=== PATIENT | female | born 1985 | race African-American/Black ===

== ENCOUNTER 2017-03-14 09:23 | Emergency (ER) | payer OTHER ==
[~2017-03-14] VITALS: Ht 160 cm; Wt 70.8 kg
[~2017-03-14 09:23] MED LIST: AMOXICILLIN 25250 M1 PO; BACTRIM DS TAB1 EACH PO; FLONASE 0.05%50 MCG NS; KEFLEX500 MG PO; NAPROSYN500 MG PO; NOHOMEMEDICATIONS; NORCO 5-325 TA1 EACH PO; PENICILLIN VK500 M1 PO; PROAIR HFA8.5 GM INH; PROMETHAZINE-C120 ML PO; TRAMADOL 50 MG50 MG PO; TUSSIONEX PENN473 ML PO; ZPAK PO
[2017-03-14 09:39] LABS: URINE BILIRUBIN NEGATIVE (Negative); URINE BLOOD 3+ (Negative); URINE COLOR YELLOW; URINE GLUCOSE-RANDOM* NEGATIVE (Negative); URINE KETONES NEGATIVE (Negative); URINE NITRITE NEGATIVE (Negative); URINE PROTEIN (DIPSTICK) NEGATIVE (Negative); URINE UROBILINOGEN 0.2 E.U./dl (0.2-1.0)
[2017-03-14 09:47] LABS: CASTS None Seen /LPF (None Seen); SQUAMOUS >10 Many /LPF (0-3)
[2017-03-14 09:48] LABS: BACTERIA 1-9 Few /HPF (None Seen); CRYSTALS None Seen /LPF (None Seen); URINE RBC 3-10 Few /HPF (0-2); URINE WBC 0-5 Rare /HPF (0-5)
[2017-03-14 10:39] LABS: ABSOLUTE NEUTROPHILS 2.9 thou/uL (1.4-8.2); BASOPHILS 0.7 % (0.0-2.0); EOSINOPHILS 2.3 % (0.0-3.0); HEMATOCRIT 37.6 % (37.0-47.0); HEMOGLOBIN 12.7 gm/dL (12.0-15.0); LYMPHOCYTES 25.3 % (24.0-44.0); MANUAL DIFF NO; MCH 32.2 pg (26.0-34.0); MCHC 33.8 g/dL (28.0-37.0); MCV 95.1 fL (80.0-100.0); MONOCYTES 11.5 % (1.0-8.0); PLATELET COUNT 239 thou/uL (150-400); POLYS 60.2 % (36.0-66.0); RBC 3.95 mil/uL (4.20-5.00); RDW 12.9 % (10.5-14.5); WBC 4.8 thou/uL (4.0-11.0)
[2017-03-14 10:54] LABS: CALCIUM 8.9 mg/dL (8.5-10.1); CREATININE 0.8 mg/dL (0.6-1.0); POTASSIUM 3.6 mmol/L (3.5-5.1)
[2017-03-14 10:59] LABS: ALBUMIN 3.9 g/dL (3.4-5.0); TOTAL BILIRUBIN 0.9 mg/dL (<0.1-1.0); TOTAL PROTEIN 7.2 g/dL (6.4-8.2)
[2017-03-14] MEDS ORDERED: PREDNISONE 10 M10 MG PO (12:26)
[2017-03-14 12:45] VITALS: BP 105/62
== END 2017-03-14 12:46 | disposition home or self-care (01) ==
LOC: ER 09:23
PROVIDERS: Physician Assistant
DX: K59.00 Constipation, unspecified (principal); R09.81 Nasal congestion; F17.210 Nicotine dependence, cigarettes, uncomplicated

== ENCOUNTER 2018-08-16 08:57 | Emergency (ER) | payer OTHER ==
[~2018-08-16] VITALS: Ht 160 cm; Wt 77.1 kg
--- NOTE | ~2018-08-16 | EKG ---
[place] [address] [facility] [place] [address] ELECTROCARDIOGRAM REPORT Name: TESS SIMS ELLA [id number] Admission: 08/16/18 Attend Phys: Discharge: 08/16/18 Date of : 81 Report #: [id number] THIS REPORT FOR: //name// [facility] ED Test Date: 2018-08-16 Test Time: 10:01:33 Pat Name: TESS SIMS Department: Room: Gender: F Host/Hostess Head: : 1985 Requested By: Humera Weinberg Order Number: [id number] MD: Placido Hamlin Measurements Intervals [place] Rate: 89 P: 44 [place]: 133 QRS: 7 QRSD: 87 T: 24 QT: 358 QTc: 436 Interpretive Statements Sinus rhythm No significant abnormality No previous ECG available for comparison Electronically Signed On 08-17-2018 8:43:40 CDT by Placido Hamlin [email or web address] <ELECTRONICALLY SIGNED> By: Placido Hamlin MD, [facility] 08/17/18 [id number] Placido aHmlin MD, FACC /EPI
[~2018-08-16 08:57] MED LIST changes: +PREDNISONE 10 M10 MG PO
[2018-08-16] MEDS ORDERED: DEXILANT30 MG PO (09:10)
[2018-08-16 09:38] LABS: URINE BILIRUBIN NEGATIVE (Negative); URINE BLOOD TRACE (Negative); URINE CLARITY CLEAR; URINE COLOR YELLOW; URINE GLUCOSE-RANDOM* NEGATIVE (Negative); URINE KETONES NEGATIVE (Negative); URINE LEUKOCYTES NEGATIVE (Negative); URINE NITRITE NEGATIVE (Negative); URINE PROTEIN (DIPSTICK) NEGATIVE (Negative); URINE SPECIFIC GRAVITY <= 1.005 (1.005-1.035); URINE UROBILINOGEN 0.2 E.U./dl (0.2-1.0)
[2018-08-16 09:50] LABS: BASOPHILS 0.7 % (0.0-2.0); EOSINOPHILS 2.7 % (0.0-3.0); HEMATOCRIT 34.9 % (37.0-47.0); HEMOGLOBIN 11.8 gm/dL (12.0-15.0); LYMPHOCYTES 12.8 % (24.0-44.0); MCH 31.9 pg (26.0-34.0); MCHC 33.8 g/dL (28.0-37.0); MCV 94.3 fL (80.0-100.0); MONOCYTES 10.8 % (1.0-8.0); PLATELET COUNT 360 thou/uL (150-400); RDW 12.8 % (10.5-14.5); WBC 6.8 thou/uL (4.0-11.0)
[2018-08-16 09:59] LABS: CALCIUM 9.6 mg/dL (8.5-10.1); CREATININE 0.8 mg/dL (0.6-1.0); POTASSIUM 3.9 mmol/L (3.5-5.1)
[2018-08-16 10:04] LABS: ALBUMIN 3.4 g/dL (3.4-5.0); TOTAL BILIRUBIN 0.5 mg/dL (<0.1-1.0); TOTAL PROTEIN 7.8 g/dL (6.4-8.2)
[2018-08-16] MEDS ORDERED: FLONASE 0.05%50 MCG NASAL (10:25)
[2018-08-16] MEDS ORDERED: TESSALON PERLE100 MG PO (10:25)
== END 2018-08-16 10:52 | disposition home or self-care (01) ==
LOC: ER 08:57
PROVIDERS: Physician Assistant
DX: J06.9 Acute upper respiratory infection, unspecified (principal); J45.909 Unspecified asthma, uncomplicated; F41.9 Anxiety disorder, unspecified; F17.210 Nicotine dependence, cigarettes, uncomplicated

== ENCOUNTER 2021-10-30 10:50 | Emergency (ER) | payer OTHER ==
[~2021-10-30] VITALS: Ht 160 cm; Wt 72.6 kg
[~2021-10-30 10:50] MED LIST changes: +DEXILANT30 MG PO; +FLONASE 0.05%50 MCG NASAL; +TESSALON PERLE100 MG PO
[2021-10-30] MEDS ORDERED: LINZESS72 MCG PO (10:55)
[2021-10-30 11:12] LABS: ABSOLUTE NEUTROPHILS 1.6 thou/uL (1.4-8.2); HEMOGLOBIN 12.4 gm/dL (12.0-15.0); LYMPHOCYTES 31.2 % (24.0-44.0); MCH 31.6 pg (26.0-34.0); MCHC 32.5 g/dL (28.0-37.0); MCV 97.1 fL (80.0-100.0); PLATELET COUNT 267 thou/uL (150-400); POLYS 50.8 % (36.0-66.0); RBC 3.91 mil/uL (4.20-5.00); RDW 13.2 % (10.5-14.5); WBC 3.1 thou/uL (4.0-11.0)
[2021-10-30 11:19] LABS: CALCIUM 8.7 mg/dL (8.5-10.1); CREATININE 0.8 mg/dL (0.6-1.0); POTASSIUM 4.3 mmol/L (3.5-5.1)
[2021-10-30 11:20] LABS: MAGNESIUM 2.3 mg/dL (1.8-2.4)
--- NOTE | 2021-10-30 11:25 | EKG ---
[address] [place] [address] ELECTROCARDIOGRAM REPORT Name: TESS SIMS ELLA Room #: [facility].#: [id number] Admission: Attend Phys: Discharge: Date of : 81 Report #: [id number] [facility] ED Test Date: 2021-10-30 Test Time: 10:54:45 Pat Name: TESS SIMS Department: Room: Gender: F Tour Escort: KEVIN : 1985 Requested By: Fransico Burden Order Number: [id number] MD: Anuj Garcia Measurements Intervals [place] Rate: 73 P: 48 NE: 140 QRS: 12 QRSD: 91 T: 37 QT: 402 QTc: 443 Interpretive Statements Sinus rhythm ST elev, probable normal early repol pattern Compared to ECG 08/16/2018 10:01:33 ST (T wave) deviation now present Electronically Signed On 10-30-2021 11:24:56 [employer] by Anuj Garcia [email or web address] <ELECTRONICALLY SIGNED> By: Anuj Garcia MD, [facility] 10/30/21 1124 [id number] [id number] Anuj Garcia MD, FACC /EPI
[2021-10-30 13:00] VITALS: BP 110/67
== END 2021-10-30 13:15 | disposition home or self-care (01) ==
LOC: ER 10:50
PROVIDERS: Emergency Medicine
DX: R00.2 Palpitations (principal); F41.9 Anxiety disorder, unspecified; K21.9 Gastro-esophageal reflux disease without esophagitis; F17.210 Nicotine dependence, cigarettes, uncomplicated; Z79.899 Other long term (current) drug therapy